=== PATIENT | female | born 2000 | race Two or more races ===

== ENCOUNTER 2025-02-13 09:20 | Emergency (ER) | payer BC ==
[~2025-02-13] VITALS: Ht 162.6 cm; Wt 68.0 kg
[2025-02-13 09:35] VITALS: BP 128/80; O2SAT 99
[2025-02-13] MEDS ORDERED: LEXAPRO5 MG PO (09:37)
[2025-02-13 11:03] LABS: URINE APPEARANCE Clear; URINE BILIRRUBIN Negative (NEGATIVE); URINE BLOOD Large; URINE COLOR Orange; URINE GLUCOSE Negative (NEGATIVE); URINE KETONE Negative (NEGATIVE); URINE LEUKOCYTE Small; URINE NITRATE Negative; URINE PROTEIN 30 (NEGATIVE); URINE UROBILINOGEN 0.2 E.U./dl
[2025-02-13 11:08] LABS: URINE BACTERIA 93.5 uL (0.0-1933); URINE EPITHELIAL CELLS 13.0 uL (0.0-38.8); URINE RBC 819.4 uL (0.0-20.8); URINE WBC 57.0 uL (0.0-23.2)
[2025-02-13 11:16] LABS: URINE CAST 0.00 uL (0.0-1.40)
== END 2025-02-13 12:12 | disposition home or self-care (01) ==
LOC: ER 09:20
DX: R30.0 Dysuria (principal); N39.0 Urinary tract infection, site not specified